=== PATIENT | female | born 1995 | race Caucasian/White ===

== ENCOUNTER 2019-07-04 17:49 | Emergency (ER) | payer MEDICAID, OTHER ==
[~2019-07-04] VITALS: Ht 162.6 cm; Wt 71.7 kg
[~2019-07-04 17:49] MED LIST: ACET500C5 PO; ONDA8TAB14 PO
[2019-07-04 17:54] VITALS: Ht 162.6 cm; Wt 71.7 kg
[2019-07-04] MEDS ORDERED: ONDANSETRON (ODT) 4 MG TAB ODT STA (18:50)
[2019-07-04] MEDS ORDERED: ACETAMINOPHEN 325 MG TAB PO ONE (19:00)
--- NOTE | 2019-07-04 20:56 | ERD ---
ER Documentation Chief Complaint Chief Complaint MID ABD PAIN STARTED TODAY HURTS MORE AFTER EATING/DRINKING HPI 24-year-old female presents with epigastric pain started today. She had a brief episode of vomiting nonbilious nonbloody and watery diarrhea as well. She denies any fevers. She denies any history of gallstones or . She denies lower abdominal pain. ROS All systems reviewed and are negative except as per history of present illness. Medications Home Meds Active Scripts Ondansetron (Ondansetron Odt) 8 Mg Tab.rapdis, 8 MG PO Q6H PRN for NAUSEA AND/OR VOMITING, #6 TAB Prov:DAPHNE SANDRA MD 07/04/19 Acetaminophen* (Tylophen*) 500 Mg Capsule, 1 CAP PO Q6H PRN for PAIN AND OR ELEVATED TEMP, #15 CAP Prov:DAPHNE SANDRA MD 07/04/19 Allergies Allergies: Coded Allergies: No Known Allergy (Unverified , 07/04/19) PMhx/Soc Medical and Surgical Hx: pt denies Medical Hx, pt denies Surgical Hx Hx Alcohol Use: No Hx Substance Use: No Hx Tobacco Use: No Smoking Status: Never smoker FmHx Family History: No diabetes, No coronary disease, No other Physical Exam Vitals Vital Signs Date Temp Pulse Resp B/P (MAP) Pulse Ox O2 O2 Flow FiO2 Time Delivery Rate 07/04/19 98.2 19:28 07/04/19 98.6 108 20 151/74 98 17:54 (99) Physical Exam Const: No acute distress Head: Atraumatic Eyes: Normal Conjunctiva ENT: Normal External Ears, Nose and Mouth. Neck: Full range of motion. No meningismus. Resp: Clear to auscultation bilaterally Cardio: Regular rate and rhythm, no murmurs Abd: Soft, normal tenderness primarily in the epigastric area. No Bourgeois s ign. No tenderness at McBurney's point no rebound or masses., non distended. Normal bowel sounds Skin: No petechiae or rashes Back: No midline or flank tenderness Ext: No cyanosis, or edema Neur: Awake and alert Psych: Normal Mood and Affect Result Diagram: 07/04/19 19007/04/19 190 Results 24 hrs Laboratory Tests Test 07/04/19 19:06 07/04/19 19:19 07/04/19 19:40 White Blood Count 10.8 10^3/ul Red Blood Count 4.95 10^6/ul Hemoglobin 14.8 g/dl Hematocrit 43.5 % Mean Corpuscular Volume 87.9 fl Mean Corpuscular Hemoglobin 29.9 pg Mean Corpuscular 34.0 g/dl Hemoglobin Concent Red Cell Distribution Width 12.3 % Platelet Count 302 10^3/UL Mean Platelet Volume 9.5 fl Immature Granulocytes % 0.400 % Neutrophils % 76.9 % Lymphocytes % 14.7 % Monocytes % 6.9 % Eosinophils % 0.8 % Basophils % 0.3 % Nucleated Red Blood Cells % 0.0 /100WBC Immature Granulocytes # 0.040 10^3/ul Neutrophils # 8.3 10^3/ul Lymphocytes # 1.6 10^3/ul Monocytes # 0.8 10^3/ul Eosinophils # 0.1 10^3/ul Basophils # 0.0 10^3/ul Nucleated Red Blood Cells # 0.0 10^3/ul Sodium Level 141 mmol/L Potassium Level 3.9 mmol/L Chloride Level 99 mmol/L Carbon Dioxide Level 30 mmol/L Anion Gap 12 Blood Urea Nitrogen 12 mg/dl Creatinine 0.82 mg/dl Est Glomerular Filtrat > 60 mL/min Rate mL/min Glucose Level 116 mg/dl Calcium Level 10.1 mg/dl Total Bilirubin 2.0 mg/dl Direct Bilirubin 0.00 mg/dl Indirect Bilirubin 2.0 mg/dl Aspartate Amino 29 IU/L Transf (AST/SGOT) Alanine 33 IU/L Aminotransferase (ALT/SGPT) Alkaline Phosphatase 81 IU/L Total Protein 8.9 g/dl Albumin 4.8 g/dl Globulin 4.10 g/dl Albumin/Globulin Ratio 1.17 Lipase 47 U/L Urine Color DIOMEDES Urine Clarity SLIGHTLY CLOUDY Urine pH 5.0 Urine Specific Malott 1.029 Urine Ketones NEGATIVE mg/dL Urine Nitrite NEGATIVE mg/dL Urine Bilirubin NEGATIVE mg/dL Urine Urobilinogen 1+ mg/dL Urine Leukocyte Esterase TRACE Luzmaria/ul Urine Microscopic RBC 56 /HPF Urine Microscopic WBC 3 /HPF Urine Squamous Epithelial Cells MODERATE /HPF Urine Bacteria FEW /HPF Urine Mucus MODERATE /HPF Urine Hemoglobin 2+ mg/dL Urine Glucose NEGATIVE mg/dL Urine Total Protein 1+ mg/dl POC Beta HCG, Qualitative NEGATIVE Current Medications Medications Dose Sig/Mikayla Start Time Status Last (Trade) Ordered Route PRN Stop Time Admin Dose Reason Admin 650 mg ONCE ONCE 07/04/19 DC 07/04/19 Acetaminophen PO 19:00 19:28 (Tylenol 07/04/19 19:01 Tab) Ondansetron 8 mg ONCE STAT 07/04/19 DC 07/04/19 HCl (Zofran ODT 18:50 19:28 Odt) 07/04/19 18:52 Procedures/MDM hCG negative. CBC normal CMP and lipase normal. Urine shows hemoglobin without additional findings of infection or acute abnormalities. hCG negative. Right upper quadrant ultrasound read as normal. Patient given Zofran and Tylenol. As well as Pepcid. Patient presents with epigastric pain, vomiting diarrhea of uncertain etiology. She may have early gastrointestinal virus. Current signs or symptoms do not suggest surgical abdomen, obstruction, appendicitis, additi onal concerning signs or symptoms or conditions. She will be treated with Tylenol, Zofran, further observation at home and return precautions. The patient was stable with no new complaints during the ER course. Clinically, there is no current evidence to suggest meningitis, sepsis, acute abdomen, pneumonia, stroke, acute coronary syndrome, pulmonary embolism, aortic dissection or any other emergent condition appearing to require further evaluation or hospitalization. Patient counseled regarding my diagnostic impression and care plan. Prior to discharge all questions answered. Pt agrees with treatment plan and understands strict return precautions. Pt is instructed to follow up with primary care provider within 24-48 hours. Precautionary instructions provided including instructions to return to the ER if not improving or for any worsening or changing symptoms or concerns. Disclaimer: Inadvertent spelling and grammatical errors are likely due to EHR/dictation software use and do not reflect on the overall quality of patient care. Also, please note that the electronic time recorded on this note does not necessarily reflect the actual time of the patient encounter. Departure Diagnosis: Primary Impression: Vomiting Vomiting type: unspecified Vomiting Intractability: unspecified Nausea presence: unspecified Qualified Codes: R11.10 - Vomiting, unspecified Additional Impression: Abdominal pain Abdominal location: epigastric Qualified Codes: R10.13 - Epigastric pain Condition: Stable Patient Instructions: Abdominal Pain, Vomiting And Diarrhea, Nonspecific (Adult) Additional Instructions: All examinations normal today. May be gastrointestinal virus which may last 1 to 3 days. Recheck for fevers, vomiting despite treatment, blood, new or worsening symptoms with primary care doctor. Recheck sooner for lower abdominal pain, fevers. DAPHNE SANDRA MD Jul 04, 2019 20:56
[2019-07-04 21:09] VITALS: BP 102/70; PULSE 72; RESP 14
== END 2019-07-04 21:08 | disposition home or self-care (01) ==
LOC: FTE 17:49
DX: R10.13 Epigastric pain (principal); R11.10 Vomiting, unspecified
CPT/HCPCS: 36415; 76705; 80053; 81001; 81025; 83690; 85025; Z7502; Z7610